=== PATIENT | male | born 1975 | race Caucasian/White ===

== ENCOUNTER 2021-03-13 16:58 | Inpatient (IN) ==
[2021-03-13] MEDS ORDERED: PIPERACILLIN/TAZOBACTAM 4.5 GM/120 ML BAG IV STA (17:17)
[2021-03-13] MEDS ORDERED: SODIUM CHLORIDE 0.9% 1000ML 1,000 ML IV STA (17:17)
[2021-03-13] MEDS ORDERED: dexAMETHasone**PF** 10 MG/ML VIAL IV ONE (17:17)
[2021-03-13] MEDS ORDERED: KETOROLAC 30 MG/ML VIAL IV STA (17:17)
--- NOTE | 2021-03-13 17:26 | Emergency Department Note ---
History of Present Illness General Chief complaint: Shortness of Breath/Dyspnea Stated complaint: CAN'T SWALLOW, SOB, DEHYDRATED, Time Seen by Provider: 03/13/21 17:06 History of Present Illness 45-year-old male presents to the ED with a chief complaint of having a bad sore throat, some increased shortness of breath, difficulty swallowing and increased generalized weakness and a sensation of dehydration. He also reports that the left side of his neck is tender. He was seen by the PCP yesterday and put on a moxicillin, prednisone and inhaler. The patient was sent here today for worsening. He states that he did have Covid earlier this month. He has had two Covid vaccines. Past Med/Surg History Social History Smoking Status: Never smoker Preferred Language: Kyrgyz Feels Safe at Home: Yes Review of Systems A total of 10 systems reviewed and were otherwise negative Physical Exam Vital Signs Vital Signs - 24 hr 03/13/21 17:02 03/13/21 17:48 Temperature 37.2 C Temperature Source Temporal Artery Scan Pulse Rate 132 H Pulse Rate [Apical] 111 H Pulse Rhythm [Apical] Regular Pulse Strength [Apical] Normal Respiratory Rate 95 H 20 Respiratory Effort / Characteristics Non-Labored Spontaneous Non-Labored Respiratory Depth Normal Normal Respiratory Pattern Regular Regular Blood Pressure 146/79 H Blood Pressure [Right Arm] 150/99 H Blood Pressure Mean 101 Blood Pressure Mean [Right Arm] 116 Blood Pressure Position [Right Arm] Sitting Pulse Oximetry 95 96 Oxygen Delivery Method Room Air Room Air Sepsis Recent Fever Within 48 Hours No Sepsis New/Unexplained Change in Mental Status N/A Sepsis Action Taken by Nursing No Action Required CONSTITUTIONAL/VITAL SIGNS: Reviewed / noted above. GENERAL: Non-toxic in appearance. INTEGUMENTARY: Warm, dry, and [address]. HEAD: Normocephalic. EYES: without scleral icterus or trauma. ENT/OROPHARYNX: The patient has some left peritonsillar fullness and bilateral erythema. No trismus. No hot potato voice. Some tenderness noted on palpation of the left neck under the jaw. The patient has no stridor. He is able to swallow fluids. LYMPHADENOPATHY/NECK: Is supple without lymphadenopathy or meningismus. RESPIRATORY: Clear to auscultation bilaterally. No increased work of breathing. CARDIOVASCULAR: Regular rate and rhythm. GI/ABDOMEN: Soft and nontender. No organomegaly or pulsatile mass. EXTREMITIES: Warm and well perfused. NEUROLOGICAL: Intact without focal deficits. PSYCHIATRIC: normal affect. MUSCULOSKELETAL: Normally developed with good muscle tone. TRIAGE NURSING DOCUMENTATION REVIEWED. Course Administered Medications Discontinued Medications Dexamethasone Sodium Phosphate (DexamethasonePf 10 Mg/Ml Vial) 10 mg IV NOW ONE Stop: 03/13/21 17:18 Last Admin: 03/13/21 17:59 Dose: 10 mg Documented by: [id number] Piperacillin Sod/Tazobactam Sod (Zosyn) 4.5 gm in 120 mls @ 200 mls/hr IV NOW STA Stop: 03/13/21 17:52 Last Infusion: 03/13/21 18:39 Dose: 200 mls/hr Documented by: [id number] Admin: 03/13/21 18:03 Dose: 200 mls/hr Documented by: [id number] Sodium Chloride (Nss 1000ml) 1,000 mls @ 999 mls/hr IV .Q1H1M STA Stop: 03/13/21 18:17 Last Infusion: 03/13/21 18:58 Dose: 999 mls/hr Documented by: [id number] Admin: 03/13/21 17:57 Dose: 999 mls/hr Documented by: [id number] Ioversol (Optiray 320 100ml) 93 ml IV ONCE ONE Stop: 03/13/21 18:24 Last Admin: 03/13/21 18:23 Dose: 93 ml Documented by: [id number] Ketorolac Tromethamine (Ketorolac 30 Mg/Ml Vial) 30 mg IV NOW STA Stop: 03/13/21 17:18 Last Admin: 03/13/21 17:58 Dose: 30 mg Documented by: [id number] Critical Care Time Critical Care Time: Yes Total Critical Care Time: 30 I have personally spent 30 minutes of critical care time in the direct management of this patient. This includes bedside care, interpretation of diagnostic studies, and testing, discussion with consultants, patient, and famil y members, and other required patient management activities. This 30 minutes is in excess of all separately billable procedures. Medical Decision Making Differential Diagnosis Differential includes viral illness, bacterial illness, peritonsillar abscess, epiglottitis, pneumonia, Covid, flu, other Medical Records Attestation: I reviewed the patient's medical records. Home Medications Current Medication List: was personally reviewed by me Laboratory Data Attestation: I reviewed the patient's lab results. Result diagrams: 03/13/21 17:51 03/13/21 17:51 Lab Results 03/13/21 03/13/21 03/13/21 Range/Units 17:51 17:51 17:51 WBC 11.72 H (4.8-10.8) K/uL RBC 4.82 (4.7-6.1) M/uL Hgb 16.0 (14.0-18.0) g/dL Hct 45.3 (42-52) % MCV 94.0 (80-100) fL MCH 33.2 (25-34) pg MCHC 35.3 (32-36) g/dL RDW Std Deviation 43.3 (36.4-46.3) fL RDW Coeff of Laly 12.5 (11.5-14.5) % Plt Count 186 (130-400) K/uL MPV 10.6 H (7.4-10.4) fL Immature Gran % (Auto) 0.2 % Neut % (Auto) 89.8 % Lymph % (Auto) 5.2 % [place] % (Auto) 4.8 % Eos % (Auto) 0.0 % Baso % (Auto) 0.0 % Neut # (Auto) 10.53 H (1.4-6.5) K/uL Lymph # (Auto) 0.61 L (1.2-3.4) K/uL [place] # (Auto) 0.56 (0.11-0.59) K/uL Eos # (Auto) 0.00 (0-0.5) K/uL Baso # (Auto) 0.00 (0-0.2) K/uL Immature Gran # (Auto) 0.02 (0.00-0.02) K/uL Sodium 129 L (136-145) mmol/L Potassium 3.8 (3.5-5.1) mmol/L Chloride 95 L (98-107) mmol/L Carbon Dioxide 24 (21-32) mmol/L Anion Gap 10 (3-11) BUN 10 (6-23) mg/dl Creatinine 1.06 (0.6-1.4) mg/dl Est Cr Clr Drug Dosing 111.5 ml/min Est GFR ( Amer) 97.8 ml/min Est GFR (Non-Af Amer) 84.3 ml/min BUN/Creatinine Ratio 9.4 L (10-20) Glucose 139 H (70-99(Fasting)) mg/dl Lactate (0.4-2.0) mmol/L Calcium 9.6 (8.5-10.1) mg/dl Total Bilirubin 2.2 H (0.2-1.0) mg/dl AST 71 H (13-39) U/L ALT 79 H (7-52) U/L Alkaline Phosphatase 54 (34-104) U/L Total Protein 8.1 (6.0-8.3) gm/dl Albumin 4.5 (3.4-5.0) gm/dl Globulin 3.6 (2.5-4.0) gm/dl Albumin/Globulin Ratio 1.3 (0.9-2) Procalcitonin 0.37 (0-0.5) ng/ml 03/13/21 Range/Units 17:51 WBC (4.8-10.8) K/uL RBC (4.7-6.1) M/uL Hgb (14.0-18.0) g/dL Hct (42-52) % MCV (80-100) fL MCH (25-34) pg MCHC (32-36) g/dL RDW Std Deviation (36.4-46.3) fL RDW Coeff of Laly (11.5-14.5) % Plt Count (130-400) K/uL MPV (7.4-10.4) fL Immature Gran % (Auto) % Neut % (Auto) % Lymph % (Auto) % [place] % (Auto) % Eos % (Auto) % Baso % (Auto) % Neut # (Auto) (1.4-6.5) K/uL Lymph # (Auto) (1.2-3.4) K/uL [place] # (Auto) (0.11-0.59) K/uL Eos # (Auto) (0-0.5) K/uL Baso # (Auto) (0-0.2) K/uL Immature Gran # (Auto) (0.00-0.02) K/uL Sodium (136-145) mmol/L Potassium (3.5-5.1) mmol/L Chloride (98-107) mmol/L Carbon Dioxide (21-32) mmol/L Anion Gap (3-11) BUN (6-23) mg/dl Creatinine (0.6-1.4) mg/dl Est Cr Clr Drug Dosing ml/min Est GFR ( Amer) ml/min Est GFR (Non-Af Amer) ml/min BUN/Creatinine Ratio (10-20) Glucose (70-99(Fasting)) mg/dl Lactate 1.1 (0.4-2.0) mmol/L Calcium (8.5-10.1) mg/dl Total Bilirubin (0.2-1.0) mg/dl AST (13-39) U/L ALT (7-52) U/L Alkaline Phosphatase (34-104) U/L Total Protein (6.0-8.3) gm/dl Albumin (3.4-5.0) gm/dl Globulin (2.5-4.0) gm/dl Albumin/Globulin Ratio (0.9-2) Procalcitonin (0-0.5) ng/ml Imaging Data Radiologist's Impression: Soft Tissue Neck CT 03/13/21 17:17 CT SCAN OF THE NECK WITH IV CONTRAST CLINICAL HISTORY: Fever. Sore throat. Clinical concern for peritonsillar abscess COMPARISON STUDY: No priors. TECHNIQUE: Following the IV administration of 93 cc of Optiray 320, CT scan of the soft tissues of the neck was performed from the skull base to the upper chest. Images are reviewed in the axial, sagittal, and coronal planes. IV contrast was administered without complication. A dose lowering technique was utilized adhering to the principles of ALARA. CT DOSE: 483.42 mGy.cm FINDINGS: Pharynx: There is severe inflammation of the pharynx centered around the left tonsils in the pericardial fat. There is significant phlegmonous change at this site with no organized/drainable fluid collection identified to indicate abscess. The significant narrows the adjacent airway. There is marked inflammatory change throughout the left parapharyngeal fat which extends inferiorly nearly to the level of the thoracic inlet. There is mild inflammation of the right parapharyngeal fat, as well as significant infiltration and thickening of the retropharyngeal soft tissues. There is no evidence of mass lesion. The vocal cords are symmetric. The epiglottis is normal. No significant periodontal disease is identified. Lymphadenopathy: There are numerous mildly enlarged left cervical chain lymph nodes with surrounding infiltration and fluid. These measure up to 1.6 cm in length, and this inflammatory process extends into the supraclavicular region. Thyroid: Normal in size and attenuation. Salivary glands: The parotid and submandibular glands are within normal limits. Brain parenchyma: The visualized brain parenchyma at the skull base is normal in appearance. Vascular structures: The carotid arteries and jugular veins are patent. Skeletal structures: Imaged portions of the calvarium at the skull base are within normal limits. The cervical spine appears intact. Sinuses and mastoids: The visualized paranasal sinuses are clear. The mastoid air cells are well pneumatized. Lung apices: Visualized apical lung parenchyma is clear. IMPRESSION: 1. There is a severe inflammatory process of the pharynx centered around the left tonsils and the left parapharyngeal soft tissues. This is likely on an infectious basis. There is phlegmonous change with no organized/drainable fluid collection to indicate abscess. 2. Extensive inflammation extends throughout the left parapharyngeal soft tissues, nearly to the level of the thoracic inlet. There is also edema/infiltration of the retropharyngeal soft tissues and mild infiltration of the right parapharyngeal fat. 3. The inflammatory process significantly narrows the pharyngeal airway. 4. There are numerous mildly enlarged left cervical lymph nodes with surrounding inflammation. This likely represents reactive change/lymphadenitis. ACT 112: Negative or not required by law. Electronically signed by: Isaac Cain M.D. 03/13/2021 6:47 PM Chest X-Ray 03/13/21 17:20 SINGLE VIEW CHEST CLINICAL HISTORY: Fever. FINDINGS: An AP, portable, upright chest radiograph is obtained patchy No prior studies are available for comparison at the time of dictation. The cardiomediastinal silhouette is unremarkable. There is mild elevation of the right hemidiaphragm and mild bibasilar atelectasis. The lungs and pleural spaces are otherwise clear. No pneumothorax is seen. The bony thorax is grossly intact. IMPRESSION: No active disease in the chest. ACT 112: Negative or not required by law. Electronically signed by: Isaac Cain M.D. 03/13/2021 5:40 PM MDM Narrative 45-year-old male presents with sore throat, weakness, difficulty swallowing due to pain. He was tachycardic in triage. He feels that he is dehydrated. This is primarily because he has not been drinking much because of the pain in his throat. The patient's oxygen saturations were 95% on room air. Blood pressure was mildly elevated. Breathing comfortably. My exam shows a possible left- sided peritonsillar abscess. Lungs are clear. No increased work of breathing. Patient has mild hypertension but otherwise denies any significant medical problems. CT scan report as noted above. There is no drainable abscess but there is retropharyngeal soft tissue edema and infiltration suggestive of a possible infection. White blood cell count is 11.7. Chemistry panel was unremarkable. There is a mild transaminitis. Procalcitonin is normal. The patient was treated with IV fluids. He was given 2 L normal saline. He was given IV Zosyn and some IV vancomycin as well as IV Decadron and IV Toradol. On reassessment, the patient states that he does feel somewhat better. I spoke with the hospitalist and intensive care service about the patient. They will see the patient for further evaluation and care. Impression & Plan Edema of pharynx, Throat infection Discharge Plan Visit Data Chief Complaint: Shortness of Breath/Dyspnea Stated Complaint: CAN'T SWALLOW, SOB, DEHYDRATED, ED Provider: Rashard Allen Discharge Problem: Edema of pharynx, Throat infection Patient Disposition: Being Evaluated by Hospitalist Forms Stand Alone Forms: My [facility] Referrals Referrals: PCP,NO [Physician] -
--- NOTE | 2021-03-13 17:41 | XRay Report ---
SINGLE VIEW CHEST CLINICAL HISTORY: Fever. FINDINGS: An AP, portable, upright chest radiograph is obtained patchy No prior studies are available for comparison at the time of dictation. The cardiomediastinal silhouette is unremarkable. There is mild elevation of the right hemidiaphragm and mild bibasilar atelectasis. The lungs and pleural space s are otherwise clear. No pneumothorax is seen. The bony thorax is grossly intact. IMPRESSION: No active disease in the chest. ACT 112: Negative or not required by law. Electronically signed by: Isaac Cain M.D. 03/13/2021 5:40 PM
[2021-03-13 18:06] LABS: Hematocrit (blood only) 45.3 % (42-52); Immature Granulocytes # (auto) 0.02 K/uL (0.00-0.02); Immature Granulocytes % (auto) 0.2 %; Lymphocytes # (auto) 0.61 K/uL (1.2-3.4); Lymphocytes % (auto) 5.2 %; Mean Corpuscular Hemoglobin 33.2 pg (25-34); Mean Corpuscular Hgb Conc 35.3 g/dL (32-36); Mean Platelet Volume 10.6 fL (7.4-10.4); Monocytes # (auto) 0.56 K/uL (0.11-0.59); Monocytes % (auto) 4.8 %; Neutrophils # (auto) 10.53 K/uL (1.4-6.5); Neutrophils % (auto) 89.8 %; Platelet Count 186 K/uL (130-400); RDW Coefficient of Variation 12.5 % (11.5-14.5); RDW Standard Deviation 43.3 fL (36.4-46.3); Red Blood Count 4.82 M/uL (4.7-6.1); White Blood Count 11.72 K/uL (4.8-10.8)
[2021-03-13] MEDS ORDERED: OPTIRAY 320 100ml IV ONE (18:23)
[2021-03-13 18:24] LABS: Albumin Globulin Ratio 1.3 (0.9-2); Albumin Level 4.5 gm/dl (3.4-5.0); BUN Creatinine Ratio 9.4 (10-20); Bilirubin,Total 2.2 mg/dl (0.2-1.0); Calcium 9.6 mg/dl (8.5-10.1); Creatinine Clr Calc Pharmacy 111.5 ml/min; Est GFR (African American) 97.8 ml/min; Est GFR (Non-African American) 84.3 ml/min; Globulin 3.6 gm/dl (2.5-4.0); Potassium 3.8 mmol/L (3.5-5.1); Total Protein 8.1 gm/dl (6.0-8.3)
--- NOTE | 2021-03-13 18:49 | CT Scan Report ---
CT SCAN OF THE NECK WITH IV CONTRAST CLINICAL HISTORY: Fever. Sore throat. Clinical concern for peritonsillar abscess COMPARISON STUDY: No priors. TECHNIQUE: Following the IV administration of 93 cc of Optiray 320, CT scan of the soft tissues of th e neck was performed from the skull base to the upper chest. Images are reviewed in the axial, sagitt al, and coronal planes. IV contrast was administered without complication. A dose lowering techniqu e was utilized adhering to the principles of ALARA. CT DOSE: 483.42 mGy.cm FINDINGS: Pharynx: There is severe inflammation of the pharynx centered around the left tonsils in the pericard ial fat. There is significant phlegmonous change at this site with no organized/drainable fluid colle ction identified to indicate abscess. The significant narrows the adjacent airway. There is marked in flammatory change throughout the left parapharyngeal fat which extends inferiorly nearly to the level of the thoracic inlet. There is mild inflammation of the right parapharyngeal fat, as well as signif icant infiltration and thickening of the retropharyngeal soft tissues. There is no evidence of mass l esion. The vocal cords are symmetric. The epiglottis is normal. No significant periodontal disease is identified. Lymphadenopathy: There are numerous mildly enlarged left cervical chain lymph nodes with surrounding infiltration and fluid. These measure up to 1.6 cm in length, and this inflammatory process extends i nto the supraclavicular region. Thyroid: Normal in size and attenuation. Salivary glands: The parotid and submandibular glands are within normal limits. Brain parenchyma: The visualized brain parenchyma at the skull base is normal in appearance. Vascular structures: The carotid arteries and jugular veins are patent. Skeletal structures: Imaged portions of the calvarium at the skull base are within normal limits. The cervical spine appears intact. Sinuses and mastoids: The visualized paranasal sinuses are clear. The mastoid air cells are well pneu matized. Lung apices: Visualized apical lung parenchyma is clear. IMPRESSION: 1. There is a severe inflammatory process of the pharynx centered around the left tonsils and the lef t parapharyngeal soft tissues. This is likely on an infectious basis. There is phlegmonous change wit h no organized/drainable fluid collection to indicate abscess. 2. Extensive inflammation extends throughout the left parapharyngeal soft tissues, nearly to the leve l of the thoracic inlet. There is also edema/infiltration of the retropharyngeal soft tissues and mil d infiltration of the right parapharyngeal fat. 3. The inflammatory process significantly narrows the pharyngeal airway. 4. There are numerous mildly enlarged left cervical lymph nodes with surrounding inflammation. This l ikely represents reactive change/lymphadenitis. ACT 112: Negative or not required by law. Electronically signed by: Isaac Cain M.D. 03/13/2021 6:47 PM
[2021-03-13] MEDS ORDERED: VANCOMYCIN CONSULT ACTIVE PRN (18:56)
[2021-03-13] MEDS ORDERED: VANCOMYCIN HCL 2,500 MG in SODIUM CHLORIDE 0.9% 500 ML IV ONE (18:56)
[2021-03-13] MEDS ORDERED: CONSULT PHARMACY STA (19:42)
--- NOTE | 2021-03-13 20:00 | History & Physical Report ---
Date of Service March 13, 2021 Assessment & Plan (1) Throat infection: Plan: Symptoms started on last Wednesday and the condition got worse gradually Feverish feeling with dysphagia and was seen by the PCP and was prescribed Augmentin, prednisone and albuterol inhaler yesterday Came to ER with increasing pain, swelling, dysphagia and shortness of breath CT scan of the soft tissue of the neck showed: 1. There is a severe inflammatory process of the pharynx centered around the left tonsils and the left parapharyngeal soft tissues. This is likely on an infectious basis. There is phlegmonous change with no organized/drainable fluid collection to indicate abscess. 2. Extensive inflammation extends throughout the left parapharyngeal soft tissues, nearly to the level of the thoracic inlet. There is also edema/infiltration of the retropharyngeal soft tissues and mild infiltration of the right parapharyngeal fat. 3. The inflammatory process significantly narrows the pharyngeal airway. 4. There are numerous mildly enlarged left cervical lymph nodes with surrounding inflammation. This likely represents reactive change/lymphadenitis. The case was discussed with corn chip maker and was admitted to ICU. Anesthesiologist was made aware about the case too The case was discussed with ENT specialist in house and advised to have broad- spectrum antibiotic, steroid and anti-inflammatory medicine He was started with intravenous vancomycin and Zosyn, intravenous dexamethasone and Toradol Formal ENT be consulted in the morning His lisinopril is on hold as there may be a suspicion for angioedema as well (2) Edema of pharynx: Plan: As above (3) Hypertension: Plan: Blood pressure remains stable Recent Covid 19 virus infection on February 13 No more symptoms from Covid He is vaccinated but not boosted His Covid test was negative as of today DVT prophylaxis SCD CODE STATUS Full History of Present Illness Chief Complaint: Pain in the throat with associated swelling since Wednesday last Primary Care Provider: Primo Hurt MD He is a 45-year-old male with significant past medical history of hypertension apparently has had Covid on 13 February and the he does not have any symptoms from that. He has been complaining of sore throat since last Wednesday associated with difficulty in swallowing and also feverish feeling. He went to see his primary care physician on Wednesday and was given Augmentin and prednisone with the albuterol inhaler. His condition has not gotten any better rather he was having more pain and problem with swallowing and also shortness of breath and came to the emergency room for further evaluation. He mentioned that he had a feeling that the condition may get worse overnight and his throat might close to quite severe problem. The CT scan did show extensive swelling involving the throat and adjoining area of the peritonsillar region but no formed abscess. He has been feeling much better in the emergency room following administration of steroid and antibiotic.he did not have any shortness of breath or the feeling of throat tightness during examination.The case was discussed with the corn chip maker and also the collection systems worker Anesthesiologist was made aware in case he needs any urgent intubation overnight and the patient was admitted to ICU with broad-spectrum antibiotic, steroid and anti-inflammatory medicine. The case was discussed with the ENT surgeon from [facility] who was not being able to see the patient but advised to have above and admit in ICU for close observation. He has been on lisinopril and that will be on hold as because we are not sure if his throat swelling is contributed by angioedema or not. Home Medications Medication Instructions Recorded Confirmed Type lisinopril 20 mg tablet 20 mg PO DAILY 03/13/21 03/13/21 History Past Med/Surg History Social History Smoking Status: Never smoker Preferred Language: Portuguese Feels Safe at Home: Yes Review of Systems Review of Systems: All systems reviewed & are unremarkable except as noted in HPI & below Physical Exam Physical Exam: Lying in bed comfortably but very anxious Constitutional: well developed, well nourished, + ill appearing and + obese Eyes: PERRL, conjunctivae normal, anicteric sclerae ENMT: external ear and nose normal, oropharynx normal Neck: + anterior neck swelling and + neck tender (Anterior and bilaterally); no nuchal rigidity Thyroid: normal thyroid Enlargement of the tonsils on both sides with tenderness and adjoining swelling with increased local temperature. Respiratory: no respiratory distress Auscultation: lungs clear to auscultation bilaterally Cardiovascular: Rate/Rhythm: regular rate and regular rhythm; not tachycardic Heart Sounds: normal S1 and normal S2; no murmur Extremities: no edema Gastrointestinal (Abdomen): Inspection/Auscultation: abdomen not distended Percussion/Palpation: abdomen soft; abdomen nontender Musculoskeletal: No acute arthritis in any joint Neurologic: Alert, awake and oriented x3. No focal sensory and motor deficit appreciated Results & Data Results & Data ([facility]) Vital Signs (Past 12 Hours) Vital Signs Temp Pulse Pulse Resp BP BP Pulse Ox 03/13/21 19:20 93 H 20 135/81 96 03/13/21 17:48 111 H 20 150/99 H 96 03/13/21 17:02 37.2 C 132 H 95 H 146/79 H 95 Laboratory Results Short CBC 03/13/21 Range/Units 17:51 WBC 11.72 H (4.8-10.8) K/uL Hgb 16.0 (14.0-18.0) g/dL Hct 45.3 (42-52) % Plt Count 186 (130-400) K/uL BMP 03/13/21 17:51 Sodium 129 L Potassium 3.8 Chloride 95 L Carbon Dioxide 24 BUN 10 Creatinine 1.06 Glucose 139 H Calcium 9.6 Liver Function 03/13/21 Range/Units 17:51 Total Bilirubin 2.2 H (0.2-1.0) mg/dl AST 71 H (13-39) U/L ALT 79 H (7-52) U/L Alkaline Phosphatase 54 (34-104) U/L Albumin 4.5 (3.4-5.0) gm/dl Medications Administered Current Inpatient Medications Vancomycin HCl 2,500 mg/ (Sodium Chloride) 550 mls @ 200 mls/hr IV NOW ONE Stop: 03/13/21 21:40 Last Admin: 03/13/21 19:19 Dose: 200 mls/hr Documented by: [email or web address] Information (Vancomycin Consult Active) 1 ea N/A UD PRN PRN Reason: Consult Stop: 04/12/21 18:55 Code Status & VTE Plan VTE Prophylaxis Plan VTE Prophylaxis will be ordered: Yes
--- NOTE | 2021-03-13 20:23 | Critical Care Consultation ---
Date of Consultation March 13, 2021 Assessment & Plan (1) Admitted to intensive care unit: Reason Critically Ill: 45-year-old male with pharyngitis/tonsillitis with likely developing peritonsillar abscess requiring close monitoring with potential for difficult airway. NEURO - * CAM ICU: NEGATIVE CARDIAC/VASCULAR - * Hypertension * Hold lisinopril for now. * Likely able to reinstitute after treatment of underlying infection. Likely not angioedema given clinical presentation and exam findings. * Monitor on telemetry. RESPIRATORY - * Difficult airway/airway compromise: * Moderate LEFT-sided pharyngeal edema resulting in degree of airway compromise. * No drainable abscess at this point. * Received Decadron, Toradol, and antibiotics in the emergency department with moderate improvement in symptoms. * Patient phonating well. No trismus. Reportedly showing good improvement. * Continue with scheduled IV dexamethasone, antibiotics, and Toradol as needed. * Consult ENT tomorrow. * Spoke with anesthesia prior to evaluating patient. They are aware of the patient's admission in the event of need for emergent airway. * Difficult airway tools readily assessable. GI/NUTRITION - * N.p.o. overnight pending improvement of airway. * Prophylaxis: Famotidine RENAL/LYTES - * Slight hyponatremia. Likely related to decreased p.o. intake. * IVF: NSS @ 100mL/hr - * No concerns at this time. ENDO - * No h/o DM or Thyroid Dz * BSGs per unit protocol. ISS --> gtt per unit policy. HEME - * Stable H&H ID - * Pharyngitis w/ developing retropharyngeal abscess: * Currently receiving Zosyn/Vanc. * Continue Zosyn for now. 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 * Will check mono in AM also * Recent recovery from Covid-19 LINES/IV ACCESS - * PIVs x2 DVT PROPHYLAXIS - * Hold overnight pending ??need for ENT intervention soon. * SCDs I have personally spent 45 minutes of critical care time in the direct management of this patient. This is a life/limb threatening event. This includes time spent evaluating patient, direct bedside care, chart review, placing orders, interpretation of diagnostic studies, discussion with consultants, patient, and family members, as well as other required patient management activities. This time is exclusive of all separately billable procedures, and teaching time and separate from and in addition to any other critical care service time. Thank you for allowing us to participate in the care of this patient. Please refer to my attending physician's documentation for any further recommendations. (2) Edema of pharynx: (3) Throat infection: (4) Hypertension: (5) Difficult airway: History of Present Illness History of Present Illness Patient is a 45-year-old male with a significant past medical history of hypertension who presented to the emergency department today with difficulty breathing and swallowing. Patient reports that this weekend he noticed discomfort to the LEFT side of his neck. He initially felt as though he had strained his neck while helping out at [employer]. He reports that throughout the week, he developed a sore throat and then she was noted to have difficulty with swallowing and slight change in voice. He was seen at his primary care provider and placed on antibiotics and steroids. Despite initial dosing, the patient reports worsening symptoms and was concerned that he was going to have difficulty breathing so he presented to the emergency department this afternoon. On assessment, the patient was noted to have significant LEFT- sided pharyngeal edema as well as lymphadenopathy to the LEFT-sided neck. Labs were not concerning. CT demonstrated phlegmonous changes to the LEFT-sided neck/throat. Patient to be evaluated for possible need for airway intervention if necessary. Upon assessment in the emergency department, the patient is awake, alert, and oriented. He has very slight muffling of voice which he reports is a significant improvement from when he presented. He actually reports that he was writing his responses by hand on initial arrival because it hurts so much to talk. He is able to tolerate his secretions and is actually asking for something to drink. He reports feeling significantly better than when he presented. He does report having fevers at home. Other than sore throat and stiffness to the LEFT-sided neck, and slight difficulty with breathing, the patient denies complaints of headaches, dizziness, lightheadedness, blurred vision, double vision, neck stiffness, chest pain, palpitations, pleuritic pain, nausea, vomiting, or abdominal discomfort. Patient does take lisinopril daily for his hypertension. Allergies Allergy/AdvReac Type Severity Reaction Status Date / Time No Known Allergies Allergy Unverified 03/13/21 21:03 Home Medications Medication Instructions Recorded Confirmed Type ibuprofen 200 mg tablet (Advil) 400 mg PO BID PRN 03/13/21 03/13/21 History lisinopril 20 mg tablet 20 mg PO DAILY 03/13/21 03/13/21 History Patient History Social History Smoking Status: Never smoker Hx Alcohol Use: No Hx Substance Use: No (denied) Preferred Language: Yakut Communication Ability: Effective Visual Impairment: No Limitations Hearing Ability: Normal Oil Analyst Required: No Beliefs That Will Affect Care: None Current Living Situation: Alone Feels Safe at Home: Yes Safety Concerns: Feels Safe At This Time Assistive Devices: None Review of Systems Review of Systems: A complete 10 point review of systems was reviewed with the patient with pertinent positives and negatives as per history of present illness. All else were negative. Physical Exam Physical Exam: VITAL SIGNS - Vital signs and nursing notes were reviewed. GENERAL - Well nourished, well developed 45-year-old male in no acute distress. Slight muffled voice. Pt communicates well with provider and answers questions appropriately. SKIN - Without rash. HEAD - NC/AT with no obvious deformities. EYES - PERRL with EOMI bilaterally. Sclera without injection. Palpebral conjunctiva pink and moist. EARS - No deformities of external structures noted on gross examination bilaterally. No pain elicited with palpation of the tragus bilaterally. External auditory canals without discharge or otorrhea. Tympanic membranes pearly olivo without retraction or bulging. No fluid or purulent material visualized behind the TM. NOSE - Midline and without cyanosis. Without purulent drainage noted. Nasal mucosa without mucus discharge. MOUTH/OROPHARYNX - Without perioral cyanosis. Buccal mucosa pink and moist and without leukoplakia. Tongue midline with LEFT sided palate deviation. Unable to appreciate tonsillar hypertrophy secondary to LEFT sided palate edema. No trismus. Erythematous posterior palate without exudates noted. Good dentition noted. Slightly muffled voice. NECK - Neck with FROM. Supple to palpation. Significant LEFT sided cervical lymphadenopathy noted. No nuchal rigidity. LUNGS - Chest wall symmetric without accessory muscle use, intercostals retractions, or central cyanosis. Normal vesicular breath sounds CTA B/L. No wheezes, rales, or rhonchi appreciated. CARDIAC - RRR with S1/S2. No murmur, rubs, or gallops appreciated. ABDOMEN - Abdominal contour flat without pulsations or visible masses. BS normoactive all four quadrants. No tenderness, palpable masses, hepatosplenomegaly, or ascites noted. Results & Data Results & Data ([facility]) Vital Signs (Past 12 Hours) Vital Signs Temp Pulse Pulse Resp BP BP Pulse Ox 03/13/21 19:20 93 H 20 135/81 96 03/13/21 17:48 111 H 20 150/99 H 96 03/13/21 17:02 37.2 C 132 H 95 H 146/79 H 95 Coding Level of Care Code Critical Care 1st 30-74 mins Diagnoses Admitted to intensive care unit Z78.9 Edema of pharynx J39.2 Throat infection J02.9 Hypertension I10 Difficult airway T88.4XXA Time Spent (min) 45
[2021-03-13] MEDS ORDERED: ICU PROTOCOL FOR HYPERGLYCEMIA PRN (21:01)
[2021-03-13] MEDS ORDERED: PIPERACILL/TAZOBAC CONSULT ACTIVE PRN (21:30)
[2021-03-13] MEDS: KETOROLAC TROMETHAMINE 15 MG/ML VIAL IV PRN (23:25)
[2021-03-13] MEDS: ACETAMINOPHEN 1,000 MG/100 ML VIAL IV PRN (23:25)
[2021-03-13] MEDS: dexAMETHasone 10 MG in SYRINGE 0 ML IV SCH (23:26)
[2021-03-13] MEDS: PIPERACILLIN/TAZOBACTAM 3.375 GM in DEXTROSE 5% 100 ML IV SCH (23:26)
[2021-03-14] MEDS: LEVALBUTEROL 0.31MG/3 ML VIAL NEB SCH ×3 (00:23→12:21)
[2021-03-14] MEDS: SODIUM CHLORIDE 0.9% 1000ML 1,000 ML IV SCH ×2 (04:11→12:28)
[2021-03-14] MEDS: dexAMETHasone 10 MG in SYRINGE 0 ML IV SCH ×4 (05:31→23:05)
[2021-03-14] MEDS: KETOROLAC TROMETHAMINE 15 MG/ML VIAL IV PRN (05:31)
[2021-03-14 05:38] LABS: Basophils # (auto) 0.01 K/uL (0-0.2); Basophils % (auto) 0.1 %; Hematocrit (blood only) 43.7 % (42-52); Hemoglobin 15.3 g/dL (14.0-18.0); Immature Granulocytes # (auto) 0.04 K/uL (0.00-0.02); Immature Granulocytes % (auto) 0.2 %; Lymphocytes # (auto) 0.54 K/uL (1.2-3.4); Lymphocytes % (auto) 3.2 %; Mean Corpuscular Hemoglobin 33.3 pg (25-34); Mean Corpuscular Volume 95.2 fL (80-100); Mean Platelet Volume 10.7 fL (7.4-10.4); Monocytes # (auto) 0.83 K/uL (0.11-0.59); Monocytes % (auto) 4.9 %; Neutrophils # (auto) 15.38 K/uL (1.4-6.5); Neutrophils % (auto) 91.6 %; Platelet Count 182 K/uL (130-400); RDW Coefficient of Variation 12.8 % (11.5-14.5); RDW Standard Deviation 44.5 fL (36.4-46.3); Red Blood Count 4.59 M/uL (4.7-6.1)
[2021-03-14 06:08] LABS: Albumin Level 3.9 gm/dl (3.4-5.0); BUN Creatinine Ratio 11.7 (10-20); Bilirubin Direct 0.4 mg/dl (0-0.2); Bilirubin,Total 1.9 mg/dl (0.2-1.0); Calcium 8.9 mg/dl (8.5-10.1); Creatinine Clr Calc Pharmacy 105.1 ml/min; Est GFR (African American) 92.5 ml/min; Est GFR (Non-African American) 79.8 ml/min; Magnesium 2.1 mg/dl (1.7-2.4); Phosphorus 2.7 mg/dl (2.5-4.9); Potassium 4.2 mmol/L (3.5-5.1); Total Protein 7.2 gm/dl (6.0-8.3)
[2021-03-14] MEDS ORDERED: VANCOMYCIN HCL 1,250 MG in SODIUM CHLORIDE 0.9% 250 ML IV SCH (07:00)
[2021-03-14] MEDS: PIPERACILLIN/TAZOBACTAM 3.375 GM in DEXTROSE 5% 100 ML IV SCH ×3 (08:07→23:05)
[2021-03-14] MEDS: FAMOTIDINE 20 MG in SYRINGE 3 ML IV SCH ×2 (09:15→19:33)
[2021-03-14] MEDS ORDERED: COUGH DROP (SUGAR FREE) LOZ 24 LOZ/1 BOX BUCCAL ONE (12:19)
[2021-03-14] MEDS ORDERED: GLUCAGON FOR INJ 1 MG VIAL IM PRN (12:45)
[2021-03-14] MEDS ORDERED: DEXTROSE 50% 50 ML SYRINGE IV PRN (12:45)
[2021-03-14] MEDS ORDERED: GLUCOSE 10 TABS/TUBE PO PRN (12:45)
[2021-03-14] MEDS ORDERED: GLUCOSE 40% GEL 15 GM TUBE PO PRN (12:45)
[2021-03-14] MEDS ORDERED: CARBOHYDRATES FOR HYPOGLYCEMIA PO PRN (12:45)
[2021-03-14] MEDS ORDERED: COUGH DROP (SUGAR FREE) LOZ 24 LOZ/1 BOX BUCCAL PRN (12:55)
--- NOTE | 2021-03-14 13:00 | Hospitalist Progress Note ---
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 It was associated with difficulty swallowing and feverish feeling and patient was seen by PCP as an outpatient and prescribed Augmentin and prednisone with albuterol inhaler but the condition did not improve and hence he presented to the ED. Is being managed for the following: #. Pharyngitis with developing retropharyngeal abscess #. Throat infection #. 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 Feverish feeling, dysphagia at presentation. Admitting CT scan of soft tissues of neck: Severe inflammatory process of the pharynx around left tonsils and left parapharyngeal soft tissues, likely infectious process, phlegmonous change with no organized/drainable fluid collection to indicate abscess. There is also edema/infiltration of the retropharyngeal soft tissues and mild infiltration of the right parapharyngeal fat. Multiple enlarged left cervical lymph nodes. Patient initially admitted to ICU for concerns of respiratory decompensation. 03/13: ENT specialist contacted and received recommendation for broad-spectrum antibiotic and steroid. 03/14: ENT evaluated the patient, recommends continuing IV antibiotics and IV faustino roids. No ENT surgical intervention needed at this time. Continue with IV Zosyn 03/13, can DC vancomycin as MRSA screen negative. Continue with Decadron 03/13. Does not appear to be angioedema given the circumstances and markers of infection. Can reinstitute lisinopril, closely monitor. On clear liquids, advance as tolerated with recommendations from ENT. Patient on room air, feeling better, continue to monitor. Can DC IV fluids once patient is eating/drinking okay. #. Chronic medical conditions: Hypertension Continue/resume home meds as and when appropriate. Admission and Anticipated Discharge Date Admission Date: March 13, 2021 Subjective Patient seen and examined at bedside for throat infection. Patient in ICU care. Patient was lying in bed, on room air, NAD, no new acute events overnight. Patient reports feeling better with regard to his neck pain, swallowing, breathing and overall. Patient reports fever with sweating overnight but no fever afterwards. Patient denies chest pain or palpitation or belly pain or acute changes in his bowel or bladder habits or other review of symptoms. Per RN, patient is doing better and breathing comfortably, patient on ice chips only until evaluated by ENT. Update later in the day, ENT seems to have cleared him for clear liquid diet and advance as tolerated. Physical Exam Physical Exam: GENERAL: Alert and oriented x3. NAD, on RA. Neck erythema/edema extending to 2/3rd of face. HEENT: No pallor, no icterus. Pupils equal, round and reactive to light. Palatal and uvula swelling/congestion and erythema noted. NECK: No JVD, no neck masses. Tenderness in the anterior necks bilaterally and submental bilaterally, no posterior auricular and occipital lymph nodes appreciated. HEART: S1 and S2 heard. Regular rate and rhythm. No murmur, no gallop. RESPIRATORY SYSTEM: Normal AP diameter. No accessory muscle use. No wheezing, no crackles. ABDOMEN: Soft, bowel sounds present, nontender, no distention. CENTRAL NERVOUS SYSTEM: No facial droop. Speech is clear. Obeys simple commands. Moves extremities. EXTREMITIES: No edema, no erythema seen. Results & Data Results & Data ([facility]) Vital Signs (Past 12 Hours) Vital Signs Temp Pulse Pulse Resp BP Pulse Ox 03/14/21 12:21 78 18 98 03/14/21 11:00 71 18 140/97 97 03/14/21 10:00 62 14 96 03/14/21 09:00 71 16 122/82 98 03/14/21 08:00 36.7 C 53 L 13 110/80 03/14/21 07:32 82 18 97 03/14/21 07:00 61 16 96 03/14/21 06:45 74 15 93 03/14/21 05:00 36.4 C L 51 L 17 97 03/14/21 04:01 58 L 15 117/66 99 03/14/21 04:00 45 L 20 99 03/14/21 03:00 56 L 18 111/76 97 03/14/21 02:00 56 L 22 115/83 95 03/14/21 01:01 56 L 19 128/77 95 03/14/21 01:00 50 L 19 93
--- NOTE | 2021-03-14 13:02 | ENT Consultation ---
Date of Consultation March 14, 2021 Assessment & Plan (1) Throat infection: Patient with an acute pharyngitis leading to parapharyngeal and retropharyngeal inflammatory changes. No ENT surgical intervention needed at this time. recommend continued IV antibiotics and IV steroids. (2) Edema of pharynx: History of Present Illness Attending Physician: Zeenat Terrazas MD History of Present Illness 45 yo male who was admitted to the ICU last night after he presented to the emergency department with sore throat and throat swelling. Patient states that he has had a mild sore throat for about the past week. States that it worsened last night which was the reason he presented to the emergency department. He had a CT scan of the neck obtained which I reviewed today. He has evidence of pharyngitis with parapharyngeal and retropharyngeal inflammatory changes. There is no drainable collection in the pharynx or the neck. He was started on IV steroids and IV antibiotics. States he feels better today than he did last night. He does not suffer from recurrent tonsillitis or recurrent pharyngitis. Was diagnosed with COVID-19 at the end January. Was seen at his family doctor earlier this week who started him on steroids and oral antibiotics. States that this did not improve his symptoms at that time. 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 Patient has some mild edema of the left hypo pharyngeal wall. His airway is widely patent. Vocal cord mobility is normal. There are no masses or lesions. Constitutional: awake alert and oriented x3. He is in no acute distress. Sitting comfortably in his bed on room air. Eyes: PERRL, conjunctivae normal, anicteric sclerae ENMT: Nose: no external nose abnormality Oropharyngeal: the tonsils are symmetric and 1+ in size. There is no pharyngeal edema on exam Neck: tender cervical adenopathy on the left Results & Data ([facility]) Vital Signs (Past 12 Hours) Vital Signs Temp Pulse Pulse Resp BP Pulse Ox 03/14/21 12:21 78 18 98 03/14/21 11:00 71 18 140/97 97 03/14/21 10:00 62 14 96 03/14/21 09:00 71 16 122/82 98 03/14/21 08:00 36.7 C 53 L 13 110/80 03/14/21 07:32 82 18 97 03/14/21 07:00 61 16 96 03/14/21 06:45 74 15 93 03/14/21 05:00 36.4 C L 51 L 17 97 03/14/21 04:01 58 L 15 117/66 99 03/14/21 04:00 45 L 20 99 03/14/21 03:00 56 L 18 111/76 97 03/14/21 02:00 56 L 22 115/83 95 03/14/21 01:01 56 L 19 128/77 95 03/14/21 01:00 50 L 19 93
--- NOTE | 2021-03-14 14:00 | Electrocardiogram Report ---
Test Reason : Blood Pressure : / mmHG Vent. Rate : 108 BPM Atrial Rate : 108 BPM P-R Int : 182 ms QRS Dur : 092 ms QT Int : 310 ms P-R-T Axes : 040 006 035 degrees QTc Int : 415 ms Sinus tachycardia Possible Left atrial enlargement Abnormal ECG No previous ECGs available Confirmed by Dangelo Hinojosa ([id number]) on 03/14/2021 1:59:41 PM Referred By: REFERRED SELF Confirmed By:Onofre Hinojosa
--- NOTE | 2021-03-14 14:06 | Critical Care Progress Note ---
Date of Service March 14, 2021 Assessment & Plan (1) Admitted to intensive care unit: Plan: Reason Critically Ill: 45-year-old male with pharyngitis/tonsillitis with likely developing peritonsillar abscess requiring close monitoring with potential for difficult airway. NEURO - * CAM ICU: NEGATIVE CARDIAC/VASCULAR - * Hypertension * Hold lisinopril for now. * Likely able to reinstitute after treatment of underlying infection. Likely not angioedema given clinical presentation and exam findings. * Monitor on telemetry. RESPIRATORY - * Significant improvement in upper airway swelling. Stable for transfer to the floor. ENT following. Continue antibiotics and steroids per ENT. GI/NUTRITION - * Clear liquids. RENAL/LYTES - * Slight hyponatremia. Likely related to decreased p.o. intake. * IVF: NSS @ 100mL/hr - * No concerns at this time. ENDO - * No h/o DM or Thyroid Dz * BSGs per unit protocol. ISS --> gtt per unit policy. HEME - * Stable H&H ID - * Continue Zosyn for retropharyngeal abscess LINES/IV ACCESS - * PIVs x2 DVT PROPHYLAXIS - * SCDs (2) Edema of pharynx: (3) Throat infection: (4) Hypertension: (5) Difficult airway: Admission and Anticipated Discharge Date Admission Date: March 13, 2021 Subjective Patient seen and examined. Ambulating in the room. Able to speak without issue. Swallowing clear liquids. No oxygen requirements at this time. Review of Systems Review of Systems: All systems reviewed & are unremarkable except as noted in HPI & below Physical Exam Physical Exam: VITAL SIGNS - Vital signs and nursing notes were reviewed. GENERAL - Well nourished, well developed 45-year-old male in no acute distress. SKIN - Without rash. HEAD - NC/AT with no obvious deformities. EYES - PERRL with EOMI bilaterally. Sclera without injection. Palpebral conjunctiva pink and moist. EARS - No deformities of external structures noted on gross examination bilaterally. No pain elicited with palpation of the tragus bilaterally. External auditory canals without discharge or otorrhea. Tympanic membranes pearly olivo without retraction or bulging. No fluid or purulent material visualized behind the TM. NOSE - Midline and without cyanosis. Without purulent drainage noted. Nasal mucosa without mucus discharge. MOUTH/OROPHARYNX - Without perioral cyanosis. Buccal mucosa pink and moist and without leukoplakia. Tongue midline with LEFT sided palate deviation. Unable to appreciate tonsillar hypertrophy secondary to LEFT sided palate edema. No trismus. Erythematous posterior palate without exudates noted. Good dentition noted. Slightly muffled voice. NECK - Neck with FROM. Supple to palpation. Significant LEFT sided cervical lymphadenopathy noted. No nuchal rigidity. LUNGS - Chest wall symmetric without accessory muscle use, intercostals retractions, or central cyanosis. Normal vesicular breath sounds CTA B/L. No wheezes, rales, or rhonchi appreciated. CARDIAC - RRR with S1/S2. No murmur, rubs, or gallops appreciated. ABDOMEN - Abdominal contour flat without pulsations or visible masses. BS normoactive all four quadrants. No tenderness, palpable masses, hepatosplenomegaly, or ascites noted. Results & Data Results & Data ([facility]) Vital Signs (Past 12 Hours) Vital Signs Temp Pulse Pulse Resp BP Pulse Ox 03/14/21 13:00 107 H 21 100 03/14/21 12:21 78 18 98 03/14/21 12:00 87 20 162/101 H 95 03/14/21 11:00 71 18 140/97 97 03/14/21 10:00 62 14 96 03/14/21 09:00 71 16 122/82 98 03/14/21 08:00 36.7 C 53 L 13 110/80 03/14/21 07:32 82 18 97 03/14/21 07:00 61 16 96 03/14/21 06:45 74 15 93 03/14/21 05:00 36.4 C L 51 L 17 97 03/14/21 04:01 58 L 15 117/66 99 03/14/21 04:00 45 L 20 99 03/14/21 03:00 56 L 18 111/76 97 03/14/21 02:00 56 L 22 115/83 95 Coding Level of Care Code 67821 Subseq Hosp Care Lvl 1 Diagnoses Admitted to intensive care unit Z78.9 Edema of pharynx J39.2 Throat infection J02.9 Hypertension I10 Difficult airway T88.4XXA
[2021-03-14] MEDS: lisinopril 20 MG TAB PO SCH (14:27)
[2021-03-14] MEDS ORDERED: LEVALBUTEROL 0.31MG/3 ML VIAL NEB PRN (15:11)
[2021-03-14] MEDS: ACETAMINOPHEN 1,000 MG/100 ML VIAL IV PRN (17:40)
[2021-03-14] MEDS: INSULIN ASPART PER UNIT SC SCH ×2 (17:42→20:17)
[2021-03-15] MEDS: ACETAMINOPHEN 1,000 MG/100 ML VIAL IV PRN ×2 (03:44→12:50)
[2021-03-15] MEDS: dexAMETHasone 10 MG in SYRINGE 0 ML IV SCH ×3 (05:16→18:08)
[2021-03-15 05:59] LABS: Albumin Globulin Ratio 1.1 (0.9-2); Albumin Level 3.9 gm/dl (3.4-5.0); BUN Creatinine Ratio 15.7 (10-20); Bilirubin,Total 1.3 mg/dl (0.2-1.0); Calcium 8.9 mg/dl (8.5-10.1); Creatinine Clr Calc Pharmacy 131.1 ml/min; Est GFR (African American) 119.7 ml/min; Est GFR (Non-African American) 103.3 ml/min; Globulin 3.6 gm/dl (2.5-4.0); Potassium 3.9 mmol/L (3.5-5.1); Total Protein 7.5 gm/dl (6.0-8.3)
[2021-03-15] MEDS: PIPERACILLIN/TAZOBACTAM 3.375 GM in DEXTROSE 5% 100 ML IV SCH ×2 (07:58→17:01)
[2021-03-15] MEDS: lisinopril 20 MG TAB PO SCH (08:00)
[2021-03-15] MEDS: INSULIN ASPART PER UNIT SC SCH ×4 (08:00→20:32)
[2021-03-15] MEDS ORDERED: lisinopril 20 MG TAB PO SCH (09:00)
[2021-03-15] MEDS: FAMOTIDINE 20 MG in SYRINGE 3 ML IV SCH ×2 (09:47→20:28)
[2021-03-15] MEDS: HEPARIN SOD 5,000 UNIT/0.5 ML VIAL SQ SCH ×2 (10:01→20:28)
--- NOTE | 2021-03-15 13:19 | Ears,Nose,Throat Progress Note ---
Date of Service March 15, 2021 Assessment & Plan (1) Edema of pharynx: (2) Throat infection: Plan: continue medical management per medical team follow up in my office in about a week after discharge. Admission and Anticipated Discharge Date Admission Date: March 13, 2021 Subjective Doing much better this afternoon. Physical Exam ENMT: No oropharyngeal edema noted on inspection today Neck: much less tenderness to palpation on the left Results & Data ([facility]) Vital Signs (Past 12 Hours) Vital Signs Temp Pulse Pulse Resp BP BP Pulse Ox 03/15/21 11:02 36.7 C 82 18 133/89 100 03/15/21 08:26 36.6 C 03/15/21 08:11 87 22 03/15/21 08:00 84 18 127/89 97 03/15/21 04:00 37.2 C 72 22 132/92 96
--- NOTE | 2021-03-15 14:57 | Hospitalist Progress Note ---
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 It was associated with difficulty swallowing and feverish feeling and patient was seen by PCP as an outpatient and prescribed Augmentin and prednisone with albuterol inhaler but the condition did not improve and hence he presented to the ED. Is being managed for the following: #. Pharyngitis with developing retropharyngeal abscess #. Throat infection #. 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 Feverish feeling, dysphagia at presentation. Admitting CT scan of soft tissues of neck: Severe inflammatory process of the pharynx around left tonsils and left parapharyngeal soft tissues, likely infectious process, phlegmonous change with no organized/drainable fluid collection to indicate abscess. There is also edema/infiltration of the retropharyngeal soft tissues and mild infiltration of the right parapharyngeal fat. Multiple enlarged left cervical lymph nodes. Patient initially admitted to ICU for concerns of respiratory decompensation. 03/13: ENT specialist contacted and received recommendation for broad-spectrum antibiotic and steroid. 03/14: ENT evaluated the patient, recommends continuing IV antibiotics and IV faustino roids. No ENT surgical intervention needed at this time. 03/15: Discussed with ENT, continue current steroid dose for 1-2 more days, start tapering dose upon discharge. Follow-up with ENT in 1 week upon discharge. Continue with IV Zosyn 03/13. Continue with Decadron 03/13. Does not appear to be angioedema given the circumstances and markers of infection. Lisinopril has already been started 03/14, patient doing better. On clear liquids, advance as tolerated --> communicated with RN. Patient on room air, feeling better, continue to monitor. Upon discharge needs follow-up with PCP/ENT/needs antibiotic/tapering dose of steroid. #. Chronic medical conditions: Hypertension Continue/resume home meds as and when appropriate. Full code DVT prophylaxis: Patient denies Heparin subcu, SCDs while in bed and frequent ambulation as able. Admission and Anticipated Discharge Date Admission Date: March 13, 2021 Subjective Patient seen and examined at bedside for throat infection. Patient was sitting up in bed, on room air, NAD, no new acute events overnight. Per RN, patient still on liquid diet and they are working on advancing the diet. Patient reports feeling better with regard to his neck pain, and looks better to me as well with regard to his facial/neck erythema and swelling. Patient denies chest pain or palpitation or belly pain or acute changes in his bowel or bladder habits or other review of symptoms. Physical Exam Physical Exam: GENERAL: Alert and oriented x3. NAD, on RA. Neck erythema/edema extending to 2/3rd of face --> improving HEENT: No pallor, no icterus. Pupils equal, round and reactive to light. Palatal and uvula swelling/congestion and erythema noted --> improving NECK: No JVD, no neck masses. Tenderness in the anterior necks bilaterally and submental bilaterally, no posterior auricular and occipital lymph nodes appreciated. HEART: S1 and S2 heard. Regular rate and rhythm. No murmur, no gallop. RESPIRATORY SYSTEM: Normal AP diameter. No accessory muscle use. No wheezing, no crackles. ABDOMEN: Soft, bowel sounds present, nontender, no distention. CENTRAL NERVOUS SYSTEM: No facial droop. Speech is clear. Obeys simple commands. Moves extremities. EXTREMITIES: No edema, no erythema seen. Results & Data Results & Data ([facility]) Vital Signs (Past 12 Hours) Vital Signs Temp Pulse Pulse Resp BP BP Pulse Ox 03/15/21 11:02 36.7 C 82 18 133/89 100 03/15/21 08:26 36.6 C 03/15/21 08:11 87 22 03/15/21 08:00 84 18 127/89 97 03/15/21 04:00 37.2 C 72 22 132/92 96
[2021-03-15] MEDS ORDERED: RAPID SEQUENCE INDUCTION BAG ONE (23:35)
[2021-03-16] MEDS: dexAMETHasone 10 MG in SYRINGE 0 ML IV SCH ×4 (00:05→17:32)
[2021-03-16] MEDS: PIPERACILLIN/TAZOBACTAM 3.375 GM in DEXTROSE 5% 100 ML IV SCH ×3 (00:06→14:44)
[2021-03-16] MEDS: ACETAMINOPHEN 1,000 MG/100 ML VIAL IV PRN ×2 (01:11→17:31)
[2021-03-16 06:07] LABS: Hemoglobin 15.1 g/dL (14.0-18.0); Mean Corpuscular Hemoglobin 33.3 pg (25-34); Mean Corpuscular Hgb Conc 35.1 g/dL (32-36); Mean Corpuscular Volume 94.9 fL (80-100); Mean Platelet Volume 10.9 fL (7.4-10.4); Platelet Count 272 K/uL (130-400); RDW Coefficient of Variation 12.9 % (11.5-14.5); RDW Standard Deviation 44.9 fL (36.4-46.3); Red Blood Count 4.53 M/uL (4.7-6.1); White Blood Count 23.78 K/uL (4.8-10.8)
[2021-03-16 06:34] LABS: BUN Creatinine Ratio 21.3 (10-20); Calcium 8.9 mg/dl (8.5-10.1); Creatinine Clr Calc Pharmacy 131.3 ml/min; Est GFR (African American) 119.7 ml/min; Est GFR (Non-African American) 103.3 ml/min; Potassium 3.8 mmol/L (3.5-5.1)
[2021-03-16] MEDS: lisinopril 20 MG TAB PO SCH (10:08)
[2021-03-16] MEDS: HEPARIN SOD 5,000 UNIT/0.5 ML VIAL SQ SCH (10:09)
[2021-03-16] MEDS: FAMOTIDINE 20 MG in SYRINGE 3 ML IV SCH (10:11)
[2021-03-16] MEDS: INSULIN ASPART PER UNIT SC SCH ×3 (10:13→17:21)
[2021-03-16] MEDS ORDERED: ADVANCED PROBIOTIC 1250 MG CAPSULE PO SCH (12:45)
--- NOTE | 2021-03-16 12:45 | Discharge Summary ---
Date of Service March 16, 2021 Admission HPI Per Admitting Provider He is a 45-year-old male with significant past medical history of hypertension apparently has had Covid on 13 February and the he does not have any symptoms from that. He has been complaining of sore throat since last Wednesday associated with difficulty in swallowing and also feverish feeling. He went to see his primary care physician on Wednesday and was given Augmentin and prednisone with the albuterol inhaler. His condition has not gotten any better rather he was having more pain and problem with swallowing and also shortness of breath and came to the emergency room for further evaluation. He mentioned that he had a feeling that the condition may get worse overnight and his throat might close to quite severe problem. The CT scan did show extensive swelling involving the throat and adjoining area of the peritonsillar region but no formed abscess. He has been feeling much better in the emergency room following administration of steroid and antibiotic.he did not have any shortness of breath or the feeling of throat tightness during examination.The case was discussed with the rawhide bone roller and also the instrumentation specialist Anesthesiologist was made aware in case he needs any urgent intubation overnight and the patient was admitted to ICU with broad-spectrum antibiotic, steroid and anti-inflammatory medicine. The case was discussed with the ENT surgeon from [facility] who was not being able to see the patient but advised to have above and admit in ICU for close observation. He has been on lisinopril and that will be on hold as because we are not sure if his throat swelling is contributed by angioedema or not. Admission Exam Per Admitting Provider Physical Exam: Lying in bed comfortably but very anxious Constitutional: well developed, well nourished, + ill appearing and + obese Eyes: PERRL, conjunctivae normal, anicteric sclerae ENMT: external ear and nose normal, oropharynx normal Neck: + anterior neck swelling and + neck tend er (Anterior and bilaterally); no nuchal rigidity Thyroid: normal thyroid Enlargement of the tonsils on both sides with tenderness and adjoining swelling with increased local temperature. Respiratory: no respiratory distress Auscultation: lungs clear to auscultation bilaterally Cardiovascular: Rate/Rhythm: regular rate and regular rhythm; not tachycardic Heart Sounds: normal S1 and normal S2; no murmur Extremities: no edema Gastrointestinal (Abdomen): Inspection/Auscultation: abdomen not distended Percussion/Palpation: abdomen soft; abdomen nontender Musculoskeletal: No acute arthritis in any joint Neurologic: Alert, awake and oriented x3. No focal sensory and motor deficit appreciated Principal Diagnosis Pharyngitis with developing retropharyngeal abscess Throat infection Discharge Exam GENERAL: Alert and oriented x3. NAD, on RA. Neck erythema/edema extending to 2/3rd of face --> improving in positive direction HEENT: No pallor, no icterus. Pupils equal, round and reactive to light. Palatal and uvula swelling/congestion and erythema noted --> improving and better NECK: No JVD, no neck masses. Tenderness in the anterior necks bilaterally and submental bilaterally, no posterior auricular and occipital lymph nodes appreciated. HEART: S1 and S2 heard. Regular rate and rhythm. No murmur, no gallop. RESPIRATORY SYSTEM: Normal AP diameter. No accessory muscle use. No wheezing, no crackles. ABDOMEN: Soft, bowel sounds present, nontender, no distention. CENTRAL NERVOUS SYSTEM: No facial droop. Speech is clear. Obeys simple commands. Moves extremities. EXTREMITIES: No edema, no erythema seen. 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 It was associated with difficulty swallowing and feverish feeling and patient was seen by PCP as an outpatient and prescribed Augmentin and prednisone with albuterol inhaler but the condition did not improve and hence he presented to the ED. He was managed for the following: #. Pharyngitis with developing retropharyngeal abscess #. Throat infection #. 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 Feverish feeling, dysphagia at presentation. Admitting CT scan of soft tissues of neck: Severe inflammatory process of the pharynx around left tonsils and left parapharyngeal soft tissues, likely infectious process, phlegmonous change with no organized/drainable fluid collection to indicate abscess. There is also edema/infiltration of the retropharyngeal soft tissues and mild infiltration of the right parapharyngeal fat. Multiple enlarged left cervical lymph nodes. Patient initially admitted to ICU for concerns of respiratory decompensation. 03/13: ENT specialist contacted and received recommendation for broad-spectrum antibiotic and steroid. 03/14: ENT evaluated the patient, recommends continuing IV antibiotics and IV steroids. No ENT surgical intervention needed at this time. 03/15: Discussed with ENT, continue current steroid dose for 1-2 more days, start tapering dose upon discharge. Follow-up with ENT in 1 week upon discharge. IV Zosyn started 03/13 being transitioned to Augmentin upon discharge. IV Decadron started 03/13 being transitioned to Medrol Dosepak upon discharge. Does not appear to be angioedema given the circumstances and markers of infection. Lisinopril has already been started 03/14, patient doing better. Patient tolerating soft diet well, recommend to continue with soft diet and advance to regular baseline diet as tolerated. Upon discharge needs follow-up with PCP/ENT/needs antibiotic/tapering dose of steroid. Patient made aware. #. Chronic medical conditions: Hypertension Continue/resume home meds as and when appropriate. Full code DVT prophylaxis: Patient denies Heparin subcu, SCDs while in bed and frequent ambulation as able. Following instructions were communicated to the patient at the point of discharge: Follow-up with your primary care physician within a week of discharge. Follow-up with ENT doctor within a week after discharge. Take your antibiotics for the duration prescribed. Start your antibiotic from 1/30 evening dose. Continue with soft diet upon discharge and slowly advance to your regular. You will be discharged on tapering dose of steroid. Total Time Total Time Spent Total Time Spent (In Minutes): 35 Discharge Plan Discharge Items Patient Disposition: Home - Self-Care Reason For Visit: DEEP NECK INFECTION Discharge Diagnosis: Pharyngitis with developing retropharyngeal abscess Throat infection Activity: Resume your previous activity Non-emergency contact: Primary Care Provider Call non-emergency contact if: you have any medication questions, your symptoms worsen, your pain is not controlled, your pain is worsening and your temperature is above 101 Follow-up/Referrals: Primo Hurt MD [Primary Care Provider] - Diet: Regular Diet Texture: Dental soft (bite-sized) Addtl Attending Provider Instructions: Follow-up with your primary care physician within a week of discharge. Follow-up with ENT doctor within a week after discharge. Take your antibiotics for the duration prescribed. Start your antibiotic from 1/30 evening dose. Continue with soft diet upon discharge and slowly advance to your regular. You will be discharged on tapering dose of steroid. Pending Studies at Discharge: No Stand-Alone Forms: My [facility], Smoking Cessation Medications and DC Order Prescriptions: New amoxicillin-pot clavulanate [Augmentin] 875-125 mg tablet 1 tab PO BID 8 Days Qty: 16 RF: 0 Probiotic 10 billion cell capsule 10 mg PO DAILY 8 Days Qty: 8 RF: 0 methylprednisolone [Medrol (Dax)] 4 mg tablets,dose pack 4 mg PO DAILY Qty: 21 RF: 0 Continued lisinopril 20 mg tablet 20 mg PO DAILY RF: 0 ibuprofen [Advil] 200 mg Tablet 400 mg PO BID PRN (Reason: Pain) RF: 0 Discharge Orders: Discharge Order (Routine); Ordered 03/16/21 Ordered By: Zeenat Terrazas Admission Data Admit Date/Time: 03/13/21 19:39 Attending Provider: Zeenat Terrazas Admit Provider: Yazmin Iglesias Primary Care Provider: Primo Hurt Other Providers: Yazmin Iglesias ; Titi Don ; Odette Leggett
[2021-03-16] MEDS ORDERED: FAMOTIDINE 20 MG TAB PO SCH (21:00)
[2021-03-17 12:01] LABS: EBV Nuclear Ag Antibody >600.00 U/mL; Epstein Barr Virus Early Ag Ab <9.00 U/mL
== END 2021-03-16 19:03 | disposition home or self-care (01) | DRG 153 ==
LOC: ED 16:58 → SUATTDRO 19:39 → 1E 19:39
DX: E87.1 Hypo-osmolality and hyponatremia; J39.0 Retropharyngeal and parapharyngeal abscess; R59.0 Localized enlarged lymph nodes; E86.0 Dehydration; I10 Essential (primary) hypertension; R06.02 Shortness of breath